=== PATIENT | female | born 1990 | race Two or more races ===

== ENCOUNTER 2023-04-18 11:41 | Emergency (ER) | payer MEDICAID ==
[~2023-04-18] VITALS: Ht 162.6 cm; Wt 82.2 kg
[2023-04-18 11:57] VITALS: PULSE 128; RESP 18; O2SAT 97
[2023-04-18 14:20] VITALS: BP 132/64; TEMP 98.7
[2023-04-18 16:29] LABS: Rapid Strep A Screen-Throat Negative
[2023-04-18 16:40] LABS: COVID19 ANTIGEN SOFIA FIA NEGATIVE (NEGATIVE)
[2023-04-18] MEDS ORDERED: ALBUAER3 IN (16:51)
[2023-04-18] MEDS ORDERED: AMOX500T3 PO (16:51)
== END 2023-04-18 18:59 | disposition home or self-care (01) ==
LOC: ER 11:41
DX: O99.513 Diseases of the respiratory system complicating pregnancy, third trimester (principal); J20.9 Acute bronchitis, unspecified; J02.9 Acute pharyngitis, unspecified; Z3A.32 32 weeks gestation of pregnancy; Z20.822 Contact with and (suspected) exposure to COVID-19
CPT/HCPCS: 36415; 87070; 87426; 87880

== ENCOUNTER 2023-06-05 07:30 | Inpatient (IN) | payer MEDICAID ==
[~2023-06-05] VITALS: Ht 157.5 cm; Wt 84.8 kg
[~2023-06-05 07:30] MED LIST: ALBUAER3 IN; AMOX500T3 PO
[2023-06-05] MEDS ORDERED: WITCH HAZEL-GLYCERIN PAD TOP PRN (08:00)
[2023-06-05] MEDS ORDERED: PROMETHAZINE HCL 25 MG/ML 1ML IV PRN (08:00)
[2023-06-05] MEDS ORDERED: PENICILLIN G POT 5MIL/D5 50ML 50 ML IV ONE (08:00)
[2023-06-05] MEDS ORDERED: DERMOPLAST 60ML BOTTLE TOP PRN (08:00)
[2023-06-05] MEDS ORDERED: LIDOCAINE 2%HCL (LOCAL ANESTH.) INJ 20ML MDV IJ PRN (08:00)
[2023-06-05] MEDS ORDERED: PHISODERM TOP SOLN 240ML BTL TOP PRN (08:00)
[2023-06-05] MEDS ORDERED: LACTATED RINGER'S 1,000 ML IV SCH (08:00)
[2023-06-05] MEDS ORDERED: PROMETHAZINE HCL 25 MG/ML 1ML IM PRN (08:00)
[2023-06-05] MEDS ORDERED: miSOPROStol 100 mcg TAB SL PRN (08:30)
[2023-06-05] MEDS ORDERED: METHYLERGONOVINE MALEATE 0.2 MG/ML AMP IM PRN (08:30)
[2023-06-05] MEDS ORDERED: ONDANSETRON HCL 4 MG/2 ML VIAL IV PRN (08:30)
[2023-06-05] MEDS ORDERED: CARBOPROST TROMETHAMINE 250 MCG/1ML VIAL IM PRN (08:30)
[2023-06-05] MEDS ORDERED: miSOPROStol 100 mcg TAB PR PRN (08:30)
[2023-06-05] MEDS ORDERED: TRANEXAMIC ACID 1,000 MG in SODIUM CHL 0.9% 100 ML IV ONE (08:30)
[2023-06-05 08:32] LABS: Basophils # (auto) 0.1 10 ^3/uL (0-0.2); Eosinophils # (auto) 0.2 10 ^3/uL (0-0.8); Eosinophils % (auto) 1.6 % (0.0-7.0); Hematocrit 43.8 % (36.0-46.0); Hemoglobin 14.6 g/dL (12.2-16.2); Lymphocytes # (auto) 2.4 10 ^3/uL (0.4-5.4); Lymphocytes % (auto) 20.1 % (10.0-50.0); Mean Corpuscular Hemoglobin 30.5 pg (28.0-32.0); Mean Corpuscular Hgb Conc. 33.2 g/dL (32.0-36.0); Mean Corpuscular Volume 91.9 fL (80.0-100.0); Monocytes # (auto) 0.9 10 ^3/uL (0-1.3); Monocytes % (auto) 7.3 % (0.0-12.0); Neutrophils # (auto) 8.3 10 ^3/uL (1.6-8.6); Nucleated Red Blood Cells % 0.1 %; Red Blood Cells 4.77 10^6/uL (4.0-5.20); Red Cell Distribution Width 13.6 % (11.8-14.3); White Blood Cell 11.9 10^3/uL (4.4-10.8)
[2023-06-05 08:36] LABS: Urine Bacteria FEW /hpf (None Seen); Urine Blood Negative /uL (Negative); Urine Clarity HAZY (Clear); Urine Color Yellow (Yellow); Urine Mucus FEW (None Seen); Urine Protein, UAD TRACE (Negative); Urine Specific Gravity 1.028 (1.001-1.035); Urine Urobilinogen Normal (Negative); Urine WBC 2 /hpf (0 - 5); Urine pH 6.5 (5.0-8.0)
[2023-06-05] MEDS ORDERED: LACT. RINGERS/OXYTOCIN 20UNITS 500 ML IV ONE ×2 (08:45→09:15)
[2023-06-05 08:49] LABS: INR 0.88 (0.9-1.15); Prothrombin Time 9.3 sec (9.3-11.8)
[2023-06-05 08:58] LABS: Amphetamine Screen, Urine Neg (NEGATIVE)
[2023-06-05 08:59] LABS: Barbiturate Scree,Urine Neg (NEGATIVE); Benzodiazephine Screen, Urine Neg (NEGATIVE); Cocaine Screen, Urine Neg (NEGATIVE)
[2023-06-05 08:59] LABS: Alanine Aminotransferase 10 U/L (7-40); Albumin 3.8 g/dL (3.2-4.8); Alkaline Phosphatase 133 U/L (46-116); Anion Gap 10 (5-15); Aspartate Aminotransferase 17 U/L (13-40); Bilirubin, Total 0.2 mg/dL (0.2-1.0); Blood Urea Nitrogen 12 mg/dL (9-23); Carbon Dioxide 20 mmol/L (20-30); Chloride 107 mmol/L (98-107); Glucose 82 mg/dL (74-106); Potassium 4.4 mmol/L (3.5-5.1); Sodium 137 mmol/L (136-145); Total Protein 6.6 g/dL (5.7-8.2)
[2023-06-05 09:00] LABS: Cannabinoid Screen, Urine Neg (NEGATIVE); Opiate Scree,Urine Neg (NEGATIVE); Phencyclidine Screen, Urine Neg (NEGATIVE)
[2023-06-05] MEDS ORDERED: DIPHENOXYLATE W/ATROPINE 2.5 MG TAB PO SCH (10:00)
[2023-06-05] MEDS ORDERED: IBUPROFEN 800 MG TAB PO PRN (11:00)
[2023-06-05] MEDS ORDERED: ACETAMINOPHEN 325 MG TAB PO PRN (11:00)
[2023-06-05] MEDS ORDERED: ONDANSETRON ODT 4 MG TAB PO PRN (11:00)
[2023-06-05] MEDS ORDERED: PENICILLIN G POTASSIUM 2,500,000 UNITS in D5W 5% 50 ML IV SCH (12:00)
[2023-06-05 15:00] VITALS: BP 121/54; PULSE 71; RESP 18; TEMP 99; O2SAT 98
[2023-06-05 18:35] VITALS: BP 121/64; PULSE 73; RESP 18; TEMP 98.5; O2SAT 98
[2023-06-05 23:10] VITALS: BP 128/66; PULSE 85; RESP 18; TEMP 100.3; O2SAT 98
[2023-06-05] MEDS: IBUPROFEN 600 MG TAB PO PRN (23:32)
[2023-06-06 01:18] LABS: COVID19 ANTIGEN SOFIA FIA NEGATIVE (NEGATIVE); Rapid Influenza A Negative (Negative); Rapid Influenza B Negative (Negative)
[2023-06-06 02:55] VITALS: BP 108/61; PULSE 63; RESP 18; TEMP 98.6; O2SAT 99
[2023-06-06 07:05] VITALS: BP 130/76; PULSE 71; RESP 16; TEMP 98.7; O2SAT 97
[2023-06-06 07:07] LABS: RPR Non Reactive (Non Reactive)
[2023-06-06 11:30] VITALS: BP 108/60; PULSE 74; RESP 16; TEMP 98.9; O2SAT 97
[2023-06-06 11:35] VITALS: TEMP 98.9
[2023-06-06] MEDS: IBUPROFEN 600 MG TAB PO PRN (11:35)
[2023-06-07 20:06] LABS: Treponema pallidum Ab (FTA-Ab) Non Reactive (Non Reactive)
== END 2023-06-06 12:27 | disposition home or self-care (01) | DRG 560 ==
LOC: UNDOADMOB 07:30 → LDRP 07:30 → INTOOBSV 07:40 → OBSVTOIN 07:40 → MERGE 07:40 → LDRP 15:11
PROVIDERS: ADMIT Obstetrics & Gynecology; ATTEND Obstetrics & Gynecology
PROC: 10E0XZZ Delivery of Products of Conception, External Approach (ICD-10-PCS; principal; 2023-06-05)
PROC: 0HQ9XZZ Repair Perineum Skin, External Approach (ICD-10-PCS; 2023-06-05)
DX: O69.81X0 Labor and delivery complicated by cord around neck, without compression, not applicable or unspecified (principal); Z37.0 Single live birth; O99.344 Other mental disorders complicating childbirth; F43.20 Adjustment disorder, unspecified; O70.0 First degree perineal laceration during delivery; Z20.822 Contact with and (suspected) exposure to COVID-19; Z3A.39 39 weeks gestation of pregnancy
CPT/HCPCS: 36415; 59025; 59409; 80053; 80307; 81001; 81002; 85025; 85610; 85730; 86592; 86850; 86900; 86901; 86920; 87426; 87804; 94760; 96360; 96361; 96365; 96366; 96372; G0378; J2540; J2590; J7060